=== PATIENT | male | born 1950 | race Caucasian/White ===

== ENCOUNTER 2024-05-10 17:18 | Emergency (ER) | payer MEDICARE, OTHER ==
--- NOTE | 2024-05-10 17:45 | ED ---
Recheck HPI - General Source: patient, RN notes reviewed <Katharine Hill - Last Filed: 05/10/24 17:43> <Tomas Camargo - Last Filed: 05/10/24 20:30> - General Stated Complaint: High BP Time Seen by Provider: 05/10/24 17:31 - History of Present Illness Initial Comments: Quick [id number] presents emergency department chief complaint of hypertension and heart palpitations. States that he checked his blood pressure earlier today with it being elevated at 194/102 and a heart rate of 65. He denies headaches, blurry or double vision. Denies history of VT, CVA. Denies peripheral edema. States he is on antihypertensives and has been taking them as directed. (Katharine Hill) Review of Systems ROS Other: All systems not noted in ROS Statement are negative. <Katharine Hill - Last Filed: 05/10/24 17:43> ROS Other: All systems not noted in ROS Statement are negative. <Tomas Camargo - Last Filed: 05/10/24 20:30> ROS Statement: Those systems with pertinent positive or pertinent negative responses have been documented in the HPI. General Exam <Katharine Hill - Last Filed: 05/10/24 17:43> - General Exam Comments Initial Comments: Visual Physical Exam Vital signs reviewed General: Well-appearing, nontoxic, no acute distress. Head: Normocephalic, atraumatic Eyes: PERRLA, EOMI ENT: Airway patent Chest: Nonlabored breathing Skin: No visual rash, normal skin tone Neuro: Alert and oriented 3 Musculoskeletal: No gross abnormalities (Katharine Hill) Course Vital Signs 05/10/24 18:01 Temperature 98.4 F Pulse Rate 69 Respiratory 16 Rate Blood Pressure 181/92 O2 Sat by Pulse 100 Oximetry Medical Decision Making <Katharine Hill - Last Filed: 05/10/24 17:43> - Lab Data Result diagrams: 05/10/24 18:08 05/10/24 18:08 <Tomas Camargo - Last Filed: 05/10/24 20:30> - Medical Decision Making I completed the quick note portion of this chart signed Katharine Hill PA-C (Katharine Hill) - Lab Data Lab Results 05/10/24 05/10/24 05/10/24 Range/Units 18:08 18:08 18:08 WBC 7.7 (3.8-10.6) k/uL RBC 4.63 (4.30-5.90) m/uL Hgb 14.6 (13.0-17.5) gm/dL Hct 43.2 (39.0-53.0) % MCV 93.3 (80.0-100.0) fL MCH 31.6 (25.0-35.0) pg MCHC 33.9 (31.0-37.0) g/dL RDW 12.5 (11.5-15.5) % Plt Count 270 (150-450) k/uL MPV 6.9 Neutrophils % 75 % Lymphocytes % 16 % Monocytes % 5 % Eosinophils % 1 % Basophils % 1 % Neutrophils # 5.8 (1.3-7.7) k/uL Lymphocytes # 1.2 (1.0-4.8) k/uL Monocytes # 0.4 (0-1.0) k/uL Eosinophils # 0.1 (0-0.7) k/uL Basophils # 0.0 (0-0.2) k/uL Sodium 129 L (137-145) mmol/L Potassium 4.3 (3.5-5.1) mmol/L Chloride 91 L (98-107) mmol/L Carbon Dioxide 31 H (22-30) mmol/L Anion Gap 7 mmol/L BUN 15 (9-20) mg/dL Creatinine 0.76 (0.66-1.25) mg/dL Est GFR (CKD-EPI)AfAm >90 (>60 ml/min/1.73 sqM) Est GFR (CKD-EPI)NonAf 89 (>60 ml/min/1.73 sqM) Glucose 107 H (74-99) mg/dL Calcium 9.5 (8.4-10.2) mg/dL Magnesium 1.8 (1.6-2.3) mg/dL Total Bilirubin 0.9 (0.2-1.3) mg/dL AST 32 (17-59) U/L ALT 23 (4-49) U/L Alkaline Phosphatase 70 (38-126) U/L Troponin I <0.012 (0.000-0.034) ng/mL Total Protein 7.6 (6.3-8.2) g/dL Albumin 4.8 (3.5-5.0) g/dL Disposition <Katharine Hill - Last Filed: 05/10/24 17:43> Is patient prescribed a controlled substance at d/c from ED?: No Time of Disposition: 20:30 <Tomas Camargo - Last Filed: 05/10/24 20:30> Clinical Impression: Atrial fibrillation, Palpitations Disposition: HOME SELF-CARE Condition: Good Instructions (If sedation given, give patient instructions): Heart Palpitations (ED) Referrals: Alfred Kruger MD [Primary Care Provider] - 1-2 days
[2024-05-10 18:04] VITALS: TEMP 98.4
[2024-05-10 18:41] LABS: Basophils % (A) 1 %; Eosinophils # (A) 0.1 k/uL (0-0.7); Eosinophils % (A) 1 %; HCT 43.2 % (39.0-53.0); HGB 14.6 gm/dL (13.0-17.5); Lymphocytes # (A) 1.2 k/uL (1.0-4.8); Lymphocytes % (A) 16 %; MCH 31.6 pg (25.0-35.0); MCHC 33.9 g/dL (31.0-37.0); MCV 93.3 fL (80.0-100.0); Mean Platelet Volume 6.9; Monocytes # (A) 0.4 k/uL (0-1.0); Monocytes % (A) 5 %; Neutrophils # (A) 5.8 k/uL (1.3-7.7); Neutrophils % (A) 75 %; Platelet Count 270 k/uL (150-450); RBC 4.63 m/uL (4.30-5.90); RDW 12.5 % (11.5-15.5); WBC 7.7 k/uL (3.8-10.6)
[2024-05-10 18:55] LABS: ALT 23 U/L (4-49); AST 32 U/L (17-59); African American GFR (CKD) >90 (>60 ml/min/1.73 sqM); Albumin 4.8 g/dL (3.5-5.0); Alkaline Phosphatase 70 U/L (38-126); Anion Gap 7 mmol/L; Blood Urea Nitrogen 15 mg/dL (9-20); Calcium 9.5 mg/dL (8.4-10.2); Carbon Dioxide 31 mmol/L (22-30); Chloride 91 mmol/L (98-107); Glucose 107 mg/dL (74-99); Magnesium 1.8 mg/dL (1.6-2.3); Non-African American GFR(CKD) 89 (>60 ml/min/1.73 sqM); Potassium 4.3 mmol/L (3.5-5.1); Sodium 129 mmol/L (137-145); Total Bilirubin 0.9 mg/dL (0.2-1.3); Total Protein 7.6 g/dL (6.3-8.2)
[2024-05-10 20:38] VITALS: BP 146/89; PULSE 65; RESP 18
== END 2024-05-10 20:38 | disposition home or self-care (01) ==
LOC: EC 17:18
CPT/HCPCS: 36415; 80053; 83735; 84484; 85025; 93005; 99283

== ENCOUNTER 2024-11-09 21:43 | Observation (INO) | payer MEDICARE, OTHER ==
[2024-11-09] MEDS: SODIUM CHLORIDE 0.9% 1,000 ML IV ONE (22:10)
--- NOTE | 2024-11-09 22:18 | ED ---
General Adult HPI - General Chief complaint: Neuro Symptoms/Deficit Stated complaint: Neuro symptoms Time Seen by Provider: 11/09/24 21:50 Source: patient, RN notes reviewed, old records reviewed Mode of arrival: ambulatory Limitations: no limitations - History of Present Illness Initial comments: Is a 74-year-old male who presents with his over concern for progressively worsening coordination. Worse over the last day or so, states that he feels like his legs do not work together and he has a hard time managing them. He states this has been symptomatic though for him for likely multiple weeks and possibly over a month. Has been progressive in nature. Patient states that he awoke this morning with worsening symptoms, at approximately 730 but was able to go workout at the gym..Just noticeably worse today. Denies any fevers, chills, cough. Does state he is having slightly increased urge to urinate. Past medical history includes hypertension. Denies any traumatic head injuries or falls. Describes it as "my feet sometimes will not work together." States he feels off balance but does not feel dizzy or having room spinning sensation. Just feels like his coordination is off. Has been slightly more forgetful over the last few months and has a history of insomnia as well as anxiety. Presents for further evaluation at this time denies any unilateral weakness or sensory deficits. No stroke history.Not on blood thinners.The feeling is somewhat always there and does not wax and wane. Once again, symptoms have been chronic for at least a month per patient. - Related Data Home Medications Medication Instructions Recorded Confirmed Cholecalciferol (Vitamin D3) 50 mcg PO DAILY 05/10/24 05/10/24 [Vitamin D3 (50 Mcg = 2000 Iu)] Ferrous Sulfate [Feosol] 325 mg PO DAILY 05/10/24 05/10/24 Olmesartan [Benicar] 20 mg PO DAILY 05/10/24 05/10/24 Simvastatin [Zocor] 20 mg PO DAILY 05/10/24 05/10/24 hydroCHLOROthiazide [Hydrodiuril] 25 mg PO DAILY 05/10/24 05/10/24 Allergies Allergy/AdvReac Type Severity Reaction Status Date / Time No Known Allergies Allergy Verified 11/09/24 21:47 Review of Systems ROS Statement: Those systems with pertinent positive or pertinent negative responses have been documented in the HPI. Review of Systems: CONST: Denies fever EYES: Denies blurry vision ENT: Denies nasal congestion C/V: Denies Chest pain RESP: Denies shortness of breath GI: Denies abdominal pain : Denies dysuria SKIN: Denies rash. MSK: Denies joint pain. NEURO: Denies headache ROS Other: All systems not noted in ROS Statement are negative. Past Medical History Past Medical History: Hypertension History of Any Multi-Drug Resistant Organisms: None Reported Additional Past Surgical History / Comment(s): carpel tunnel Past Psychological History: No Psychological Hx Reported Smoking Status: Never smoker Past Alcohol Use History: None Reported Past Drug Use History: None Reported General Exam - General Exam Comments Initial Comments: General: Appears in no acute distress. HEAD: Normal with no signs of head trauma. EYES: PERRLA, EOMI, conjunctiva normal, no discharge. Pupils are 3 mm and equal bilaterally. ENT: Hearing grossly intact, normal oropharynx. RESPIRATORY: Clear breath sounds bilaterally. No wheezes, rales, or rhonchi. C/V: Regular rate and rhythm. S1 and S2 auscultated, no edema, peripheral pulses 2+ and intact throughout ABD: Abd is soft, nontender, nondistended EXT: Normal range of motion, no obvious deformity SKIN: No rashes or lesions observed on exposed skin. NEURO: Alert and oriented x 4. Cranial nerves II-XII intact. No focal sensory or strength deficits. Cerebellar function appears normal as patient has normal finger-nose testing bilaterally, [id number] testing bilaterally. Patient has absence of dysdiadochokinesia. NIH is currently 0. GCS of 15. Limitations: no limitations Course Vital Signs 11/09/24 21:44 Temperature 97.7 F Pulse Rate 65 Respiratory 18 Rate Blood Pressure 178/88 O2 Sat by Pulse 99 Oximetry Medical Decision Making - Medical Decision Making Was pt. sent in by a medical professional or institution (, PA, BACK GRAY CLOTH WASHER, urgent care, hospital, or alf...) When possible be specific @ -No Did you speak to anyone other than the patient for history (EMS, parent, family, police, friend...)? What history was obtained from this source @ -Spoke with patient's , who corroborated the story. Did you review nursing and triage notes (agree or disagree)? Why? @ -I reviewed and agree with nursing and triage notes Were old charts reviewed (outside hosp., previous admission, EMS record, old EKG, old radiological studies, urgent care reports/EKG's, alf records)? Report findings @ -Compared today's EKG with EKG from May 10, 2024. No obvious acute ischemic changes present. Differential Diagnosis (chest pain, altered mental status, abdominal pain women, abdominal pain men, vaginal bleeding, weakness, fever, dyspnea, syncope, headache, dizziness, GI bleed, back pain, seizure, CVA, palpatations, mental h ealth, musculoskeletal)? @ -CVA, progressive weakness, electrolyte abnormalities, infection. This list is not all inclusive. EKG interpreted by me (3pts min.). @ -As above X-rays interpreted by me (1pt min.). @ -Chest x-ray reveals no obvious acute cardiopulmonary process. CT interpreted by me (1pt min.). @ -CT brain, CT angiogram head and neck negative for any obvious acute intracranial process. U/S interpreted by me (1pt. min.). @ -None done What testing was considered but not performed or refused? (CT, X-rays, U/S, labs)? Why? @ -None What meds were considered but not given or refused? Why? @ -None Did you discuss the management of the patient with other professionals (professionals i.e. , PA, [employer] G[employer] CLOTH WASHER, lab, RT, psych nurse, criminal justice social worker, nitroglycerin nitrator operator batch, teacher, sergeant of officers, special education case manager)? Give summary @ -Discussed with Dr. Tejada who accepted the admission. Was smoking cessation discussed for >3mins.? @ -No Was critical care preformed (if so, how long)? @ -No Were there social determinants of health that impacted care today? How? (Homelessness, low income, unemployed, alcoholism, drug addiction, transportation, low edu. Level, literacy, decrease access to med. care, halfway, rehab)? @ -No Was there de-escalation of care discussed even if they declined (Discuss DNR or withdrawal of care, Hospice)? DNR status @ -No What co-morbidities impacted this encounter? (DM, HTN, Smoking, COPD, CAD, Cancer, CVA, ARF, Chemo, Hep., AIDS, mental health diagnosis, sleep apnea, morbid obesity)? @ -None Was patient admitted / discharged? Hospital course, mention meds given and route , prescriptions, significant lab abnormalities, going to OR and other pertinent info. @ -Patient presents with progressive neurological changes, consisting of some coordination issues ongoing for at least a month but worse over the last 24 hours or so. Does not meet criteria for stroke activation. NIH is 0. GCS 15. Vital signs are within acceptable limits. We will obtain general stroke workup empirically and he was in agreement this plan. He will be given IV fluids. EKG shows no signs of acute ischemia.Patient negative for any obvious acute process. Labs are remarkable for hyponatremia with a sodium level of 124 and hypochloremia of 89. Remainder the workup unremarkable. Patient was administered 325 mg of aspirin and we will continue with IV hydration with normal saline. I discussed results with the patient. Patient will be admitted for IV fluids and evaluation by neurology. Patient was on hydrochlorothiazide which could be contributory to the hyponatremia. He recently stopped it this week. He was in agreement with plan for admission. Neurology consulted. I spoke with the admitting provider, Dr. Tejada who accepted the admission. Undiagnosed new problem with uncertain prognosis? @ -No Drug Therapy requiring intensive monitoring for toxicity (Heparin, Nitro, Insul in, Cardizem)? @ -No Were any procedures done? @ -No Diagnosis/symptom? @ -Hyponatremia, unsteadiness Acute, or Chronic, or Acute on Chronic? @ -Acute Uncomplicated (without systemic symptoms) or Complicated (systemic symptoms)? @ -Complicated Side effects of treatment? @ -None Exacerbation, Progression, or Severe Exacerbation] @ -No Poses a threat to life or bodily function? @ -Potentially, yes - Lab Data Result diagrams: 11/09/24 22:09 11/09/24 22:09 Lab Results 11/09/24 11/09/24 11/09/24 Range/Units 22:09 22:09 22:09 WBC 7.74 (4.50-10.00) 10*3/uL RBC 4.29 L (4.40-5.60) 10*6/uL Hgb 14.2 (13.0-17.0) g/dL Hct 38.8 L (39.6-50.0) % MCV 90.4 (80.0-97.0) fL MCH 33.1 H (27.0-32.0) pg MCHC 36.6 (32.0-37.0) g/dL Plt Count 239 (140-440) 10*3/uL MPV 7.9 L (9.5-12.2) fL Immature Gran % (Auto) 0.3 % Neutrophils % 67.4 % Lymphocytes % 18.1 % Monocytes % 12.9 % Eosinophils % 0.9 % Basophils % 0.4 % Immature Gran # 0.02 (0.00-0.04) 10*3/uL Neutrophils # 5.22 (1.80-7.70) 10*3/uL Lymphocytes # 1.40 (0.90-5.00) 10*3/uL Monocytes # 1.00 (0.20-1.00) 10*3/uL Eosinophils # 0.07 (0.04-0.35) 10*3/uL Basophils # 0.03 (0.00-0.10) 10*3/uL PT 11.3 (10.0-12.5) sec INR 1.0 (<1.2) APTT 26.0 (22.0-30.0) sec Sodium 124 L (137-145) mmol/L Potassium 4.2 (3.5-5.1) mmol/L Chloride 89 L (98-107) mmol/L Carbon Dioxide 25 (22-30) mmol/L Anion Gap 10 mmol/L BUN 21 H (9-20) mg/dL Creatinine 0.73 (0.66-1.25) mg/dL Est GFR (CKD-EPI)AfAm >90 (>60 ml/min/1.73 sqM) Est GFR (CKD-EPI)NonAf >90 (>60 ml/min/1.73 sqM) Glucose 118 H (74-99) mg/dL Plasma Lactic Acid Cristobal (0.7-2.0) mmol/L Calcium 9.4 (8.4-10.2) mg/dL Magnesium 2.0 (1.6-2.3) mg/dL Total Bilirubin 0.9 (0.2-1.3) mg/dL AST 43 (17-59) U/L ALT 30 (4-49) U/L Alkaline Phosphatase 77 (38-126) U/L Total Protein 6.9 (6.3-8.2) g/dL Albumin 4.4 (3.5-5.0) g/dL Urine Color Urine Appearance (Clear) Urine pH (5.0-8.0) Ur Specific [place] (1.001-1.035) Urine Protein (Negative) Urine Glucose (UA) (Negative) Urine Ketones (Negative) Urine Blood (Negative) Urine Nitrite (Negative) Urine Bilirubin (Negative) Urine Urobilinogen (<2.0) mg/dL Ur Leukocyte Esterase (Negative) 11/09/24 11/09/24 Range/Units 22:09 23:45 WBC (4.50-10.00) 10*3/uL RBC (4.40-5.60) 10*6/uL Hgb (13.0-17.0) g/dL Hct (39.6-50.0) % MCV (80.0-97.0) fL MCH (27.0-32.0) pg MCHC (32.0-37.0) g/dL Plt Count (140-440) 10*3/uL MPV (9.5-12.2) fL Immature Gran % (Auto) % Neutrophils % % Lymphocytes % % Monocytes % % Eosinophils % % Basophils % % Immature Gran # (0.00-0.04) 10*3/uL Neutrophils # (1.80-7.70) 10*3/uL Lymphocytes # (0.90-5.00) 10*3/uL Monocytes # (0.20-1.00) 10*3/uL Eosinophils # (0.04-0.35) 10*3/uL Basophils # (0.00-0.10) 10*3/uL PT (10.0-12.5) sec INR (<1.2) APTT (22.0-30.0) sec Sodium (137-145) mmol/L Potassium (3.5-5.1) mmol/L Chloride (98-107) mmol/L Carbon Dioxide (22-30) mmol/L Anion Gap mmol/L BUN (9-20) mg/dL Creatinine (0.66-1.25) mg/dL Est GFR (CKD-EPI)AfAm (>60 ml/min/1.73 sqM) Est GFR (CKD-EPI)NonAf (>60 ml/min/1.73 sqM) Glucose (74-99) mg/dL Plasma Lactic Acid Cristobal 1.0 (0.7-2.0) mmol/L Calcium (8.4-10.2) mg/dL Magnesium (1.6-2.3) mg/dL Total Bilirubin (0.2-1.3) mg/dL AST (17-59) U/L ALT (4-49) U/L Alkaline Phosphatase (38-126) U/L Total Protein (6.3-8.2) g/dL Albumin (3.5-5.0) g/dL Urine Color Colorless Urine Appearance Clear (Clear) Urine pH 6.5 (5.0-8.0) Ur Specific [place] 1.030 (1.001-1.035) Urine Protein Negative (Negative) Urine Glucose (UA) Negative (Negative) Urine Ketones Negative (Negative) Urine Blood Negative (Negative) Urine Nitrite Negative (Negative) Urine Bilirubin Negative (Negative) Urine Urobilinogen <2.0 (<2.0) mg/dL Ur Leukocyte Esterase Negative (Negative) - EKG Data -: EKG Interpreted by Me EKG Comments: 12-lead Electrocardiogram Interpretation Note EKG was reviewed and interpreted by myself. 12-lead ECG performed at 2153 is interpreted by me as revealing rhythm with first-degree AV block at a rate of 65 beats per minute. [place] is normal. MI interval is 220 ms, QRS duration is 90 ms, QTc is 395 ms.. There were no ST or T wave abnormalities to suggest myocardial ischemia or injury. R wave progression across the precordium was satisfactory. By my interpretation this EKG is non-diagnostic for acute ischemia. Disposition Clinical Impression: Unsteadiness on feet, Hyponatremia Disposition: ADMITTED IP TO THIS HOSP Condition: Stable Time of Disposition: 00:01
[2024-11-09 22:28] LABS: Basophils # (A) 0.03 10*3/uL (0.00-0.10); Basophils % (A) 0.4 %; Eosinophils # (A) 0.07 10*3/uL (0.04-0.35); Eosinophils % (A) 0.9 %; HCT 38.8 % (39.6-50.0); HGB 14.2 g/dL (13.0-17.0); Lymphocytes % (A) 18.1 %; MCH 33.1 pg (27.0-32.0); MCHC 36.6 g/dL (32.0-37.0); MCV 90.4 fL (80.0-97.0); Mean Platelet Volume 7.9 fL (9.5-12.2); Monocytes % (A) 12.9 %; Neutrophils # (A) 5.22 10*3/uL (1.80-7.70); Neutrophils % (A) 67.4 %; Platelet Count 239 10*3/uL (140-440); RBC 4.29 10*6/uL (4.40-5.60); RDW 12.1 % (11.5-14.5); WBC 7.74 10*3/uL (4.50-10.00)
[2024-11-09 22:38] LABS: Anion Gap 10 mmol/L; Blood Urea Nitrogen 21 mg/dL (9-20); Carbon Dioxide 25 mmol/L (22-30); Chloride 89 mmol/L (98-107); Glucose 118 mg/dL (74-99); Potassium 4.2 mmol/L (3.5-5.1); Prothrombin Time 11.3 sec (10.0-12.5); Sodium 124 mmol/L (137-145)
[2024-11-09 22:39] LABS: ALT 30 U/L (4-49); AST 43 U/L (17-59); African American GFR (CKD) >90 (>60 ml/min/1.73 sqM); Albumin 4.4 g/dL (3.5-5.0); Alkaline Phosphatase 77 U/L (38-126); Calcium 9.4 mg/dL (8.4-10.2); Non-African American GFR(CKD) >90 (>60 ml/min/1.73 sqM); Total Bilirubin 0.9 mg/dL (0.2-1.3); Total Protein 6.9 g/dL (6.3-8.2)
--- NOTE | 2024-11-09 23:07 | XR ---
EXAMINATION TYPE: XR chest 2V DATE OF EXAM: 11/09/2024 11:03 PM COMPARISON: 01/29/2014 CLINICAL INDICATION: Male, 74 years old with history of Weakness, TECHNIQUE: XR chest 2V view(s) obtained. FINDINGS: The heart size is normal. The pulmonary vasculature is normal. The lungs are clear. Scoliosis through the thoracolumbar spine. IMPRESSION: 1. No acute pulmonary process. [facility], , 11/09/2024 11:05 PM
--- NOTE | 2024-11-09 23:26 | CT ---
EXAMINATION TYPE: CT brain wo con DATE OF EXAM: 11/09/2024 11:12 PM COMPARISON: None. CLINICAL INDICATION: Male, 74 years old with history of weakness, Patient states lost of balance. Sta charley that it started this AM. TECHNIQUE: CT of the brain is performed utilizing 3 mm thick sections through the posterior fossa and 3 mm thick sections through the remaining calvarium. Study is performed within 24 hours of arrival to the hospital. Contrast used: mL of , (none if empty) CT DLP: 1270.1 mGycm, Automated exposure control for dose reduction was used. FINDINGS: Beam hardening artifact from dental amalgam causes some limitation in the posterior fossa. No abnormal hyperdensity is present to suggest an acute intracranial hemorrhage. No mass lesion is evident. No acute infarcts are evident. Mild periventricular white matter hypodensity is present, likely on th e basis of chronic white matter ischemic changes. Ventricles and sulci are appropriate for the patient age. Paranasal sinuses and mastoid air cells within the [id number] are clear. IMPRESSION: 1. No acute intracranial process. Follow up MRI can be performed as clinically indicated. 2. Chronic appearing mild diffuse periventricular white matter ischemic-type changes [facility], , 11/09/2024 11:23 PM
--- NOTE | 2024-11-09 23:50 | CT ---
EXAMINATION TYPE: CT angio head neck DATE OF EXAM: 11/09/2024 11:12 PM COMPARISON: None. CLINICAL INDICATION: Male, 74 years old with history of coordination issues for weeks, Patient states lost of balance. States that it started this AM. TECHNIQUE: CTA scan is performed with axial images are obtained, coronal and sagittal reformatted marla ges are reviewed. MIP images created on a separate workstation and submitted for review. 3-D reconstr ucted images are created on an independent workstation and reviewed. Source images are reviewed. The re is some reconstruction difficulty is due to tortuosity on the reconstructed images. NASCET criteri a was used in interpretation of this exam? Contrast used:65 mL of Isovue 370 with IV Contrast, (none if empty) Oral contrast used: (none if empty) CT DLP: 493.1 mGycm, Automated exposure control for dose reduction was used. FINDINGS: Carotid/Vascular Structures: There is a 3 vessel arch. Common carotid arteries bifurcate into internal and external carotid arteries without significant alexsandra w limiting stenosis. Posterior carotid artery bifurcation calcifications present bilaterally. Vertebral arteries are codominant. Internal carotid arteries and vertebral arteries are patent to the skull base. Cervical of [place]: Vertebral basilar system appears normal. Posterior cerebral vasculature is unrema rkable. Internal carotid arteries bifurcate normally into A1 and M1 segments. A2 segments are normal. The anterior communicating artery is patent. The right posterior communicating artery is patent. The left posterior communicating artery is patent. IMPRESSION: 1. No flow-limiting stenosis bilateral carotid bifurcations. 2. Normal [place] of [place] [facility], , 11/09/2024 11:47 PM
[2024-11-10] MEDS ORDERED: NALOXONE 0.4 MG/ML 1 ML VIAL IV PRN (00:24)
[2024-11-10 00:39] LABS: Appearance,Urine Clear (Clear); Bilirubin,Urine Negative (Negative); Blood,Urine Negative (Negative); Color,Urine Colorless; Glucose,Urine (UA) Negative (Negative); Ketones,Urine Negative (Negative); Leukocyte Esterase,Urine Negative (Negative); Nitrite,Urine Negative (Negative); PH, Urine 6.5 (5.0-8.0); Protein,Urine Negative (Negative); Urobilinogen,Urine <2.0 mg/dL (<2.0)
[2024-11-10] MEDS: ASPIRIN 325 MG TAB PO STA (00:47)
[2024-11-10] MEDS: SODIUM CHLORIDE 0.9% 1,000 ML IV STA (00:47)
--- NOTE | 2024-11-10 11:42 | P.HPIM ---
History of Present Illness H&P Date: 11/10/24 Cristian James, is a 74-year-old male, patient of Dr. Kruger, who presented to [facility] emergency room with a chief complaint of generalized weakness and unsteady gait, he was recently evaluated by his auto cleaner and had evidence of hyponatremia, at that time he was maintained on Benicar with hydrochlorothiazide, this was discontinued and patient was given a higher dose of Benicar, however he stated that his symptoms continued to worsen, he decided to come to emergency room, he had evidence of worsening hyponatremia with sodium of 124. He was evaluated in the emergency room vital examination on presentation revealed a temperature of 97.7 pulse 65 respiration 18 blood pressure 178/88 pulse ox 99% on room air Laboratory data revealed a white blood count of 7.74 hemoglobin 14.2 platelet count 239 sodium 124 potassium 4.2 chloride 89 CO2 25 BUN 21 creatinine 0.73 lactic acid 1.0 glucose 118 Testing in the emergency room revealed EKG revealed sinus rhythm with first-deg ree AV block and right ventricular hypertrophy, chest x-ray revealed no acute pulmonary process, CT scan of the brain revealed no acute intracranial process chronic periventricular white matter ischemic type changes, CT angiogram revealed no flow-limiting stenosis in the bilateral carotid bifurcations and normal [place] of [place]. Patient was admitted to medical floor for further evaluation and treatment, he was started on IV normal saline for hyponatremia, consultation for neurology was initiated. Past Medical History Past Medical History: Hypertension History of Any Multi-Drug Resistant Organisms: None Reported Additional Past Surgical History / Comment(s): carpel tunnel Past Psychological History: No Psychological Hx Reported Smoking Status: Never smoker Past Alcohol Use History: None Reported Past Drug Use History: None Reported Medications and Allergies Home Medications Medication Instructions Recorded Confirmed Type Cholecalciferol (Vitamin D3) 50 mcg PO HS 05/10/24 11/10/24 History [Vitamin D3 (50 Mcg = 2000 Iu)] Ferrous Sulfate [Feosol] 325 mg PO HS 05/10/24 11/10/24 History Olmesartan [Benicar] 40 mg PO DAILY 05/10/24 11/10/24 History Simvastatin [Zocor] 20 mg PO HS 05/10/24 11/10/24 History Allergies Allergy/AdvReac Type Severity Reaction Status Date / Time No Known Allergies Allergy Verified 11/10/24 09:40 Physical Exam Vitals: Vital Signs Temp Pulse Pulse Resp BP BP Pulse Ox 11/10/24 06:59 98.0 F 56 L 16 161/86 100 11/10/24 01:46 97.9 F 60 16 169/88 99 11/10/24 01:13 98.2 F 11/10/24 00:53 58 L 18 166/96 99 11/09/24 21:44 97.7 F 65 18 178/88 99 Intake and Output 11/09/24 11/10/24 11/10/24 22:59 06:59 14:59 Intake Total 240 Balance 240 Intake: Oral 240 Other: # Voids 1 Weight 70.307 kg 70.307 kg In general patient is alert and oriented x 3 in no distress HEENT head normocephalic and atraumatic Neck is supple no JVD no goiter no lymphadenopathy no carotid bruit Chest examination is clear to auscultation no crackles no wheezing Cardiac exam reveals regular heart sounds S1 and S2 no gallops no murmurs Abdomen is soft nontender no organomegaly with normal bowel sounds Extremity exam reveals no edema no cyanosis or clubbing Neurological examination reveals no gross focal deficits Results CBC & Chem 7: 11/09/24 22:09 11/09/24 22:09 Labs: Abnormal Lab Results - Last 24 Hours (Table) 11/09/24 11/09/24 Range/Units 22:09 22:09 RBC 4.29 L (4.40-5.60) 10*6/uL Hct 38.8 L (39.6-50.0) % MCH 33.1 H (27.0-32.0) pg MPV 7.9 L (9.5-12.2) fL Sodium 124 L (137-145) mmol/L Chloride 89 L (98-107) mmol/L BUN 21 H (9-20) mg/dL Glucose 118 H (74-99) mg/dL Thrombosis Risk Factor Assmnt - Choose All That Apply Any of the Below Risk Factors Present?: No Other Risk Factors: Yes Each Risk Factor Represents 3 Points: Age 75 years or older Other congenital or acquired thrombophilia - If yes, enter type in comment: No Thrombosis Risk Factor Assessment Total Risk Factor Score: 3 Thrombosis Risk Factor Assessment Level: Moderate Risk Assessment and Plan Plan: Generalized weakness with unsteady gait Severe hyponatremia Underlying history of hypertension Underlying history of hyperlipidemia Underlying history of iron deficiency anemia Underlying history of vitamin D deficiency At this time patient was seen and examined Home medications reviewed and reordered He was started on IV normal saline for hyponatremia Neurology consultation was requested for possible stroke Physical therapy and Occupational Therapy requested Will follow closely
[2024-11-10 12:27] LABS: ALT 24 U/L (4-49); AST 30 U/L (17-59); African American GFR (CKD) >90 (>60 ml/min/1.73 sqM); Albumin 3.6 g/dL (3.5-5.0); Albumin/Globulin Ratio 1.7; Alkaline Phosphatase 62 U/L (38-126); Anion Gap 7 mmol/L; Blood Urea Nitrogen 12 mg/dL (9-20); Calcium 8.7 mg/dL (8.4-10.2); Carbon Dioxide 24 mmol/L (22-30); Chloride 93 mmol/L (98-107); Globulin 2.1 g/dL; Glucose 131 mg/dL (74-99); Non-African American GFR(CKD) >90 (>60 ml/min/1.73 sqM); Potassium 4.2 mmol/L (3.5-5.1); Sodium 124 mmol/L (137-145); Total Bilirubin 0.7 mg/dL (0.2-1.3); Total Protein 5.7 g/dL (6.3-8.2)
--- NOTE | 2024-11-10 13:11 | P.CNNES ---
History of Present Illness Consult date: 11/10/24 Requesting physician: Dave Bernal Reason for Consult: progressive unsteadiness/possible dementia History of Present Illness: This is a 74-year-old gentleman who presents to the emergency department because of unsteadiness. Patient stated that for the past month he feels has difficulty with his walking and he feels as if his right and left leg is pushing against 1 another and that they feel tense but denies any weakness. He denies swaying towards 1 side or the other. He denies any falls. Denies any focal weakness, visual disturbance, any difficulty swallowing any numbness. Denies any neck pain or lower back pain. He feels it is worse in the last couple days. He states that his sodium has been going down and he was on diuretics since 2022 but he showed me his lab graph of the sodium and it is trending down and as a result it was discontinued recently and he was placed on losartan. He does have underlying history of hypertension. Denies any history of stroke. Denies being on any antiplatelet. Denies any confusion. He resides with his . Patient states that he had recent TSH which was normal. His hemoglobin A1c is 6.3 and he states that it is what it usually hovers is below 6.5 and usually ranges in 6 to just below 6.5. He stated that that is chronic. Some of the workup during this hospital visit consisted of: Sodium is 124. In April [address] of the head is reported as no acute intracranial process. I personally reviewed the CT and I agree with the report. CT angiography of the head and neck is reported as no flow-limiting stenosis bilateral carotid bifurcation. Normal [place] Review of Systems As per HPI. Past Medical History Past Medical History: Hypertension History of Any Multi-Drug Resistant Organisms: None Reported Additional Past Surgical History / Comment(s): carpel tunnel Past Psychological History: No Psychological Hx Reported Smoking Status: Never smoker Past Alcohol Use History: None Reported Past Drug Use History: None Reported Medications and Allergies Home Medications Medication Instructions Recorded Confirmed Type Cholecalciferol (Vitamin D3) 50 mcg PO HS 05/10/24 11/10/24 History [Vitamin D3 (50 Mcg = 2000 Iu)] Ferrous Sulfate [Feosol] 325 mg PO HS 05/10/24 11/10/24 History Olmesartan [Benicar] 40 mg PO DAILY 05/10/24 11/10/24 History Simvastatin [Zocor] 20 mg PO HS 05/10/24 11/10/24 History Allergies Allergy/AdvReac Type Severity Reaction Status Date / Time No Known Allergies Allergy Verified 11/10/24 09:40 Physical Examination - Vital Signs Vital Signs: Vital Signs Temp Pulse Pulse Resp BP BP Pulse Ox 11/10/24 11:41 98.1 F 58 L 16 145/78 97 11/10/24 06:59 98.0 F 56 L 16 161/86 100 11/10/24 01:46 97.9 F 60 16 169/88 99 11/10/24 01:13 98.2 F 11/10/24 00:53 58 L 18 166/96 99 11/09/24 21:44 97.7 F 65 18 178/88 99 Intake and Output 11/09/24 11/10/24 11/10/24 22:59 06:59 14:59 Intake Total 240 Balance 240 Intake: Oral 240 Other: # Voids 1 Weight 70.307 kg 70.307 kg GENERAL: The patient is lying in bed and is not in acute distress. NEUROLOGICAL: Higher mental function: The patient is awake, alert, oriented to self, place and time. Patient is following commands. No aphasia and no neglect. Cranial nerves: The pupils are round, equal and reactive to light and accommodation. Visual ruffin are full to confrontation throughout. Extraocular movement is intact no nystagmus is noted. Facial sensation is normal to touch throughout. The facial strength is normal throughout. Hearing is normal bilaterally to hand rub. Tongue is midline and moved [id number] without any difficulty. No dysarthria is noted. Shoulder shrug is normal bilaterally. Motor: Gait is normal. The strength is 5 over 5 throughout. Normal tone and bulk. Cerebellum: Normal finger to nose heel to watkins bilaterally. Sensation: Sensation is normal to touch throughout. Reflexes (right/left): 2+ throughout. Plantars are downgoing bilaterally. Results - Laboratory Findings CBC and BMP: 11/09/24 22:09 11/10/24 11:55 Abnormal Lab Findings: Abnormal Labs 11/09/24 11/09/24 11/10/24 22:09 22:09 11:55 RBC 4.29 L Hct 38.8 L MCH 33.1 H MPV 7.9 L Sodium 124 L 124 L Chloride 89 L 93 L BUN 21 H Creatinine 0.60 L Glucose 118 H 131 H Total Protein 5.7 L Assessment and Plan Assessment: This is a 74-year-old gentleman with underlying history of hypertension who is on diuretic since 2022 and patient showed me a graph that his sodium is trending down since he is being on diuretic in the last 6 months to a year. His sodium currently is 124. Presents our emergency department because of feeling unsteady walking and he feels his legs are being pulled but denies any focal deficit. On my examination was normal. CT of the head is unremarkable. Unsteadiness of his legs is likely due to his electrolyte imbalance/h yponatremia. Examination was normal. ED physician was concerned about possible dementia but his electrolyte imbalance can cause confusion and on my examination her is oriented X4. Hyponatremia possibly due to medication induced likely diuretic Underlying hypertension Borderline diabetes mellitus last hemoglobin A1c that he had as an outpatient was 6.3 recently Plan: Oredered Vitamin B12 and folate I ordered MRI of the brain which will likely be performed on Tuesday but if the patient continues to be doing well recommend discontinuing the MRI the brain since this seems more due to the hyponatremia. If there is any further concerns of confusion then recommend outpatient neuropsych evaluation for memory testing Also recommend neurological evaluation as an outpatient within 2 to 3 weeks. PT and OT are consulted If Possible please avoid diuretic. Will defer the rest of the medical management to primary other specialist Thank you for the consultation. Time with Patient: Greater than 30
[2024-11-10] MEDS: LOSARTAN 50 MG TAB PO SCH (17:09)
--- NOTE | 2024-11-11 08:24 | P.PN ---
Subjective Progress Note Date: 11/11/24 Cristian James, is a 74-year-old male, patient of Dr. Kruger, who presented to [facility] emergency room with a chief complaint of generalized weakness and unsteady gait, he was recently evaluated by his nude model and had evidence of hyponatremia, at that time he was maintained on Benicar with hydrochlorothiazide, this was discontinued and patient was given a higher dose of Benicar, however he stated that his symptoms continued to worsen, he decided to come to emergency room, he had evidence of worsening hyponatremia with sodium of 124. He was evaluated in the emergency room vital examination on presentation revealed a temperature of 97.7 pulse 65 respiration 18 blood pressure 178/88 pulse ox 99% on room air Laboratory data revealed a white blood count of 7.74 hemoglobin 14.2 platelet count 239 sodium 124 potassium 4.2 chloride 89 CO2 25 BUN 21 creatinine 0.73 lactic acid 1.0 glucose 118 Testing in the emergency room revealed EKG revealed sinus rhythm with first- degree AV block and right ventricular hypertrophy, chest x-ray revealed no acute pulmonary process, CT scan of the brain revealed no acute intracranial process chronic periventricular white matter ischemic type changes, CT angiogram revealed no flow-limiting stenosis in the bilateral carotid bifurcations and normal [place]. Patient was admitted to medical floor for further evaluation and treatment, he was started on IV normal saline for hyponatremia, consultation for neurology was initiated. On 11/11/2024 patient is alert and oriented x 3. Patient reports improvement with symptoms. Patient has been evaluated by neurology services recommending MRI to be completed tomorrow. Awaiting lab works today. Patient denies chest pain or shortness of breath. Patient denies nausea vomiting or diarrhea. Patient denies any urinary burning or frequency Objective - Vital Signs Vital signs: Vital Signs Temp 97.8 F 11/11/24 06:50 Pulse 60 11/11/24 06:50 Resp 16 11/11/24 06:50 BP 175/91 11/11/24 06:50 Pulse Ox 99 11/11/24 06:50 FiO2 Intake & Output 11/10/24 11/11/24 11/11/24 18:59 06:59 18:59 Intake Total 1860 540 Balance 1860 540 Intake: Intake, IV Titration 1080 Amount Sodium Chloride 0.9% 1, 1080 000 ml @ 90 mls/hr IV . Q11H7M STA Rx#:[id number] Oral 780 540 Other: # Voids 1 1 - Exam In general patient is alert and oriented x 3 in no distress HEENT head normocephalic and atraumatic Neck is supple no JVD no goiter no lymphadenopathy no carotid bruit Chest examination is clear to auscultation no crackles no wheezing Cardiac exam reveals regular heart sounds S1 and S2 no gallops no murmurs Abdomen is soft nontender no organomegaly with normal bowel sounds Extremity exam reveals no edema no cyanosis or clubbing Neurological examination reveals no gross focal deficits - Labs CBC & Chem 7: 11/09/24 22:09 11/10/24 11:55 Labs: Abnormal Lab Results - Last 24 Hours (Table) 11/10/24 Range/Units 11:55 Sodium 124 L (137-145) mmol/L Chloride 93 L (98-107) mmol/L Creatinine 0.60 L (0.66-1.25) mg/dL Glucose 131 H (74-99) mg/dL Total Protein 5.7 L (6.3-8.2) g/dL Assessment and Plan Plan: Generalized weakness with unsteady gait Severe hyponatremia Underlying history of hypertension Underlying history of hyperlipidemia Underlying history of iron deficiency anemia Underlying history of vitamin D deficiency At this time patient was seen and examined Home medications reviewed and reordered He was started on IV normal saline for hyponatremia Neurology consultation was requested for possible stroke MRI has been ordered Physical therapy and Occupational Therapy requested Will follow closely
[2024-11-11] MEDS: SODIUM CHLORIDE 0.9% 1,000 ML IV SCH (08:49)
[2024-11-11 09:47] LABS: Basophils # (A) 0.04 X 10*3/uL (0.00-0.10); Basophils % (A) 0.7 %; Eosinophils % (A) 1.7 %; HCT 39.7 % (39.6-50.0); HGB 13.7 g/dL (13.0-17.0); Lymphocytes # (A) 1.13 X 10*3/uL (0.90-5.00); Lymphocytes % (A) 18.8 %; MCH 32.2 pg (27.0-32.0); MCHC 34.5 g/dL (32.0-37.0); MCV 93.4 FL (80.0-97.0); Mean Platelet Volume 8.3 FL (9.5-12.2); Monocytes # (A) 0.69 X 10*3/uL (0.20-1.00); Monocytes % (A) 11.5 %; NRBC Per 100 WBC 0 X 10*3/uL (0.00-0.01); Neutrophils # (A) 4.04 X 10*3/uL (1.80-7.70); Neutrophils % (A) 67.1 %; Platelet Count 238 X 10*3/uL (140-440); RBC 4.25 X 10*6/uL (4.40-5.60); RDW 12.5 % (11.5-14.5); WBC 6.01 X 10*3/uL (4.50-10.00)
[2024-11-11 11:03] LABS: ALT 25 U/L (10-49); AST 29 U/L (14-35); Albumin 3.9 g/dL (3.8-4.9); Albumin/Globulin Ratio 2.29 Ratio (1.60-3.17); Alkaline Phosphatase 53 U/L (41-126); BUN/Creat Ratio 12.25 Ratio (12.00-20.00); Blood Urea Nitrogen 9.8 mg/dL (9.0-27.0); Calcium 9.1 mg/dL (8.7-10.3); Carbon Dioxide 25.7 mmol/L (21.6-31.8); Chloride 97 mmol/L (96-109); Globulin 1.7 g/dL (1.6-3.3); Glucose 104 mg/dL (70-110); Potassium 5.2 mmol/L (3.5-5.5); Sodium 131 mmol/L (135-145); Total Bilirubin 0.5 mg/dL (0.3-1.2); Total Protein 5.6 g/dL (6.2-8.2)
--- NOTE | 2024-11-11 12:48 | P.PN ---
Subjective Progress Note Date: 11/11/24 I am following-up with patient and he feels better today compared to yesterday. No issues with gait. I spoke with primary team N.P. and they agree there is no confusion. Objective - Vital Signs Vital signs: Vital Signs Temp 97.8 F 11/11/24 06:50 Pulse 60 11/11/24 08:00 Resp 16 11/11/24 08:00 BP 175/91 11/11/24 06:50 Pulse Ox 99 11/11/24 06:50 FiO2 Intake & Output 11/10/24 11/11/24 11/11/24 18:59 06:59 18:59 Intake Total 1860 540 Balance 1860 540 Intake: Intake, IV Titration 1080 Amount Sodium Chloride 0.9% 1, 1080 000 ml @ 90 mls/hr IV . Q11H7M STA Rx#:[id number] Oral 780 540 Other: # Voids 1 1 - Exam GENERAL: The patient is lying in bed and is not in acute distress. NEUROLOGICAL: Higher mental function: The patient is awake, alert, oriented to self, place and time. Patient is following commands. No aphasia and no neglect. Cranial nerves: The pupils are round, equal and reactive to light and accommodation. Visual ruffin are full to confrontation throughout. Extraocular movement is intact no nystagmus is noted. Facial sensation is normal to touch throughout. The facial strength is normal throughout. Hearing is normal bilaterally to hand rub. Tongue is midline and moved [id number] without any difficulty. No dysarthria is noted. Shoulder shrug is normal bilaterally. Motor: The strength is 5 over 5 throughout. Normal tone and bulk. Cerebellum: Normal finger to nose bilaterally. Sensation: Sensation is normal to touch throughout. Reflexes (right/left): 2+ throughout. Plantars are downgoing bilaterally. Some of the workup during this hospital visit consisted of: Sodium is 124. In April [address] of the head is reported as no acute intracranial process. I personally reviewed the CT and I agree with the report. CT angiography of the head and neck is reported as no flow-limiting stenosis bilateral carotid bifurcation. Normal [place] - Labs CBC & Chem 7: 11/11/24 05:47 11/11/24 05:47 Labs: Abnormal Lab Results - Last 24 Hours (Table) 11/11/24 11/11/24 Range/Units 05:47 05:47 RBC 4.25 L (4.40-5.60) X 10*6/uL MCH 32.2 H (27.0-32.0) pg MPV 8.3 L (9.5-12.2) [place] Sodium 131 L (135-145) mmol/L Total Protein 5.6 L (6.2-8.2) g/dL Assessment and Plan Assessment: This is a 74-year-old gentleman with underlying history of hypertension who is on diuretic since 2022 and patient showed me a graph that his sodium is trending down since he is being on diuretic in the last 6 months to a year. His sodium currently is 124. Presents our emergency department because of feeling unsteady walking and he feels his legs are being pulled but denies any focal deficit. On my examination was normal. CT of the head is unremarkable. Unsteadiness of his legs is likely due to his electrolyte imbalanc e/hyponatremia. Examination was normal. ED physician was concerned about possible dementia but his electrolyte imbalance can cause confusion and on my examination her is oriented X4. Hyponatremia possibly due to medication induced likely diuretic Underlying hypertension Borderline diabetes mellitus last hemoglobin A1c that he had as an outpatient was 6.3 recently Plan: Oredered Vitamin B12 and folate I ordered MRI of the brain yesterday which will likely be performed on Tuesday but if the patient continues to be doing well recommend discontinuing the MRI the brain since this seems more due to the hyponatremia. Today I felt he is drastically improved and can be performed as outpatient therefore cancelled. If there is any further concerns of confusion then recommend outpatient neuropsych evaluation for memory testing Also recommend neurological evaluation as an outpatient within 2 to 3 weeks. PT and OT are consulted If Possible please avoid diuretic. Will defer the rest of the medical management to primary other specialist The plan is discussed with patient and primary team N.P. The primary team is considering of discharging him today ADDENDUM: I was updated by the nurse that primary will not discharge him and patient wants to pursue with MRI Brain as inpatient since will be here till tomorrow. Dr. Stone will resume neurology service tomorrow A.M. Time with Patient: Less than 30
[2024-11-11] MEDS: ALPRAZolam 0.25 MG TAB PO PRN (20:58)
[2024-11-12 01:45] VITALS: RESP 16
[2024-11-12 07:34] VITALS: BP 162/91; PULSE 54; TEMP 98.7
[2024-11-12 08:31] LABS: Basophils # (A) 0.05 X 10*3/uL (0.00-0.10); Basophils % (A) 0.7 %; Eosinophils # (A) 0.18 X 10*3/uL (0.04-0.35); Eosinophils % (A) 2.6 %; HCT 39.4 % (39.6-50.0); HGB 13.4 g/dL (13.0-17.0); Lymphocytes # (A) 1.54 X 10*3/uL (0.90-5.00); Lymphocytes % (A) 22.1 %; MCH 31.9 pg (27.0-32.0); MCV 93.8 FL (80.0-97.0); Mean Platelet Volume 8.4 FL (9.5-12.2); Monocytes # (A) 0.68 X 10*3/uL (0.20-1.00); Monocytes % (A) 9.7 %; NRBC Per 100 WBC 0 X 10*3/uL (0.00-0.01); Neutrophils % (A) 64.5 %; Platelet Count 232 X 10*3/uL (140-440); RDW 12.7 % (11.5-14.5); WBC 6.98 X 10*3/uL (4.50-10.00)
[2024-11-12 08:35] LABS: ALT 26 U/L (10-49); AST 22 U/L (14-35); Albumin 3.9 g/dL (3.8-4.9); Albumin/Globulin Ratio 2.29 Ratio (1.60-3.17); Alkaline Phosphatase 51 U/L (41-126); Blood Urea Nitrogen 13.2 mg/dL (9.0-27.0); Calcium 8.9 mg/dL (8.7-10.3); Carbon Dioxide 28.5 mmol/L (21.6-31.8); Chloride 98 mmol/L (96-109); Globulin 1.7 g/dL (1.6-3.3); Glucose 107 mg/dL (70-110); Potassium 4.6 mmol/L (3.5-5.5); Sodium 134 mmol/L (135-145); Total Bilirubin 0.4 mg/dL (0.3-1.2); Total Protein 5.6 g/dL (6.2-8.2)
--- NOTE | 2024-11-12 12:56 | MR ---
EXAMINATION TYPE: MR brain wo con DATE OF EXAM: 11/12/2024 12:36 PM COMPARISON: None. CLINICAL INDICATION: Male, 74 years old with history of unsteadiness, TECHNIQUE: Multi planar multi sequence imaging of the brain. FINDINGS: The ventricles, basal cisterns and sulci overlying the cerebral convexities are mildly moderately enl arged. There is evidence of moderate periventricular white matter ischemic demyelination. Remote deep white matter insults are also noted. No acute edema is seen on diffusion weighted imaging. There is no evidence for midline shift or mass effect. Acute intracranial hemorrhage or extra-axial collection is not evident. The paranasal sinuses and mastoid air cells are well-aerated. IMPRESSION: Age-related atrophic and chronic small vessel ischemic change. No acute intracranial process at this time. [facility], , 11/12/2024 12:53 PM
--- NOTE | 2024-11-16 09:27 | P.DS ---
Providers Date of admission: 11/10/24 00:24 Expected date of discharge: 11/12/24 Attending physician: Peewee Tejada Consults: 11/10/24 00:24 Consult Physician Routine Consulting Provider: Mehran Cesar Consult Reason/Comments: progressive unsteadiness/possible dementia Do you want consulting provider notified?: Yes Primary care physician: Alfred Kruger [facility] Hospital Course: Diagnosis on discharge: Generalized weakness with unsteady gait Severe hyponatremia Underlying history of hypertension Underlying history of hyperlipidemia Underlying history of iron deficiency anemia Underlying history of vitamin D deficiency Hospital course: Cristian James, is a 74-year-old male, patient of Dr. Kruger, who presented to [facility] emergency room with a chief complaint of generalized weakness and unsteady gait, he was recently evaluated by his prefitter doors and had evidence of hyponatremia, at that time he was maintained on Benicar with hydrochlorothiazide, this was discontinued and patient was given a higher dose of Benicar, however he stated that his symptoms continued to worsen, he decided to come to emergency room, he had evidence of worsening hyponatremia with sodium of 124. He was evaluated in the emergency room vital examination on presentation revealed a temperature of 97.7 pulse 65 respiration 18 blood pressure 178/88 pulse ox 99% on room air Laboratory data revealed a white blood count of 7.74 hemoglobin 14.2 platelet count 239 sodium 124 potassium 4.2 chloride 89 CO2 25 BUN 21 creatinine 0.73 lactic acid 1.0 glucose 118 Testing in the emergency room revealed EKG revealed sinus rhythm with first- degree AV block and right ventricular hypertrophy, chest x-ray revealed no acute pulmonary process, CT scan of the brain revealed no acute intracranial process chronic periventricular white matter ischemic type changes, CT angiogram revealed no flow-limiting stenosis in the bilateral carotid bifurcations and normal [place] of [place]. Patient was admitted to medical floor for further evaluation and treatment, he was started on IV normal saline for hyponatremia, consultation for neurology was initiated. On 11/11/2024 patient is alert and oriented x 3. Patient reports improvement with symptoms. Patient has been evaluated by neurology services recommending MRI to be completed tomorrow. Awaiting lab works today. Patient denies chest pain or shortness of breath. Patient denies nausea vomiting or diarrhea. Patient denies any urinary burning or frequency On 11/12/2024 patient is alert and oriented x 3. Brain MRI completed showing age-related atrophic and chronic small vessel ischemic change no acute intracranial process at this time. Patient will be DC'd home and follow-up with PCP and consulting providers for further management Patient Condition at Discharge: Stable Plan - Discharge Summary Discharge Rx Participant: No New Discharge Prescriptions: Continue Simvastatin [Zocor] 20 mg PO HS Olmesartan [Benicar] 40 mg PO DAILY Ferrous Sulfate [Iron (65 MG Elemental)] 325 mg PO HS Cholecalciferol (Vitamin D3) [Vitamin D3 (50 Mcg = 2000 Iu)] 50 mcg PO HS Discharge Medication List Cholecalciferol (Vitamin D3) [Vitamin D3 (50 Mcg = 2000 Iu)] 50 mcg PO HS 05/10/24 [History] Ferrous Sulfate [Iron (65 MG Elemental)] 325 mg PO HS 05/10/24 [History] Olmesartan [Benicar] 40 mg PO DAILY 05/10/24 [History] Simvastatin [Zocor] 20 mg PO HS 05/10/24 [History] Follow up Appointment(s)/Referral(s): Alfred Kruger MD [Primary Care Provider] - 1-2 days Patient Instructions/Handouts: Hyponatremia (DC) Discharge Disposition: HOME SELF-CARE
== END 2024-11-12 14:02 | disposition home or self-care (01) ==
LOC: EC 21:43 → 5NMEDONC 11-10 00:24 → 6NMEDSUR 11-11 18:32
PROVIDERS: ADMIT Internal Medicine; ATTEND Internal Medicine
DX: R26.81 Unsteadiness on feet (principal); R53.1 Weakness; E87.1 Hypo-osmolality and hyponatremia; E78.5 Hyperlipidemia, unspecified; I10 Essential (primary) hypertension; D50.9 Iron deficiency anemia, unspecified; E55.9 Vitamin D deficiency, unspecified; F41.9 Anxiety disorder, unspecified; G47.00 Insomnia, unspecified; R73.03 Prediabetes; Z79.899 Other long term (current) drug therapy
CPT/HCPCS: 96360; 99285; 36415; 93005; 97161; 97165; 80053 ×4; 82607; 82746; 83605; 83735; 85025 ×3; 85610; 85730; 81003; 71046; 70496; 70450; 70498; 70551; G0378 ×3; Q9967